=== PATIENT | female | born 1935 | race African-American/Black ===

== ENCOUNTER 2019-04-23 10:59 | Inpatient (IN) | payer OTHER ==
--- NOTE | 2019-04-23 11:30 | PDOC ---
History of Present Illness - General Chief Complaint: Edema Stated Complaint: SWELLING/PCP SENT Time Seen by Provider: 04/23/19 11:30 - History of Present Illness Initial Comments: 04/23/19 11:30 Ms. Bishop is an 83 yo female w/ pmh of HTN, HLD, DM, Glaucoma, GERD, previous DVT (on eliquis) who presents for evaluation on advice of PCP. Patient was evaluated in office 2 days ago and thought to be retaining fluid. Was directed to come to ER at that time for evaluation however was unable to make it until today. Patient reports she has been feeling weak for the last week. Denies other symptoms at this time. The patient denies chest pain, shortness of breath, headache and dizziness. Denies fever, chills, nausea, vomit, diarrhea and constipation. Denies dysuria, frequency, urgency and hematuria. Past History - Past Medical History Allergies/Adverse Reactions: Allergies Allergy/AdvReac Type Severity Reaction Status Date / Time No Known Allergies Allergy Verified 04/23/19 11:03 COPD: No Diabetes: Yes HTN: Yes Hypercholesterolemia: Yes - Immunization History Immunization Up to Date: No - Psycho Social/Smoking Cessation Hx Smoking History: Never smoked Have you smoked in the past 12 months: No Information on smoking cessation initiated: No Hx Alcohol Use: No Drug/Substance Use Hx: No Review of Systems - Review of Systems Comments:: 04/23/19 11:30 GENERAL/CONSTITUTIONAL: +Generalized weakness for the past week. No fever or chills. HEAD, EYES, EARS, NOSE AND THROAT: No change in vision. No ear pain or discharge. No sore throat. CARDIOVASCULAR: No chest pain or shortness of breath RESPIRATORY: No cough, wheezing, or hemoptysis. GASTROINTESTINAL: No nausea, vomiting, diarrhea or constipation. GENITOURINARY: No dysuria, frequency, or change in urination. MUSCULOSKELETAL: No joint or muscle swelling or pain. No neck or back pain. SKIN: No rash NEUROLOGIC: No headache, vertigo, loss of consciousness, or change in strength/ sensation. ENDOCRINE: No increased thirst. No abnormal weight change HEMATOLOGIC/LYMPHATIC: No anemia, easy bleeding, or history of blood clots. ALLERGIC/IMMUNOLOGIC: No hives or skin allergy. *Physical Exam - Vital Signs Last Vital Signs Temp Pulse Resp BP Pulse Ox 98.4 F 76 16 124/54 L 99 01/16/20 11:05 04/23/19 11:05 04/23/19 11:05 04/23/19 11:05 04/23/19 11:05 - Physical Exam 04/23/19 11:31 GENERAL: Awake, alert, and fully oriented, in no acute distress HEAD: +Patient face swollen under eyes KARLA. No signs of trauma, normocephalic, atraumatic EYES: PERRLA, EOMI, sclera anicteric, conjunctiva clear ENT: Auricles normal inspection, hearing grossly normal, nares patent, oropharynx clear without exudates. Moist mucosa NECK: Normal ROM, supple, no lymphadenopathy, JVD, or masses LUNGS: No distress, speaks full sentences, clear to auscultation bilaterally HEART: Regular rate and rhythm, normal S1 and S2, no murmurs, rubs or gallops, peripheral pulses normal and equal bilaterally. ABDOMEN: Soft, nontender, normoactive bowel sounds. No guarding, no rebound. No masses EXTREMITIES: +Signficant pedal edema KARLA up to knees. Normal inspection, Normal range of motion. No clubbing or cyanosis. NEUROLOGICAL: Cranial nerves II through XII grossly intact. Normal speech, no focal sensorimotor deficits SKIN: Warm, Dry, normal turgor, no rashes or lesions noted. ED Treatment Course - LABORATORY CBC & Chemistry Diagram: 04/23/19 12:31 04/23/19 12:31 Medical Decision Making - Medical Decision Making 04/23/19 14:59 Patient is an 83 yo female w/ pmh as described who presents for evaluation of weakness with weight gain and concern for fluid overload per PCP. Patient evaluated and found to have significant pedal edema with worsening mobility. 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 Patient evaluated for fluid overload and infections process with no clear results as below regarding weakness. Discussed with PCP and will admit for observation for failure to thrive. Discharge - Discharge Information Problems reviewed: Yes Clinical Impression/Diagnosis: Failure to thrive Qualifiers: Failure to thrive age range: in adult Qualified Code(s): R62.7 - Adult failure to thrive Condition: Stable - Admission Yes - Follow up/Referral - Patient Discharge Instructions - Post Discharge Activity
[2019-04-23 12:55] LABS: BASO % 0.5 % (0-2.0); EOS % 2.8 % (0-4.5); HEMATOCRIT 30.1 % (32.4-45.2); HEMOGLOBIN 9.8 GM/dL (10.7-15.3); LYMPH % 29.4 % (8-40); MCH 31.7 pg (25.7-33.7); MCHC 32.5 g/dl (32.0-36.0); MEAN CELL VOLUME 97.7 fl (80-96); MEAN PLT VOLUME 9.6 fl (7.5-11.1); MONO % 10.9 % (3.8-10.2); NEUT % 56.4 % (42.8-82.8); PLATELET COUNT 124 K/MM3 (134-434); RBC 3.08 M/mm3 (3.60-5.2); RDW 15.9 % (11.6-15.6); WHITE BLOOD COUNT 5.4 K/mm3 (4.0-10.0)
[2019-04-23 13:25] LABS: ALBUMIN 3.7 g/dl (3.4-5.0); BILIRUBIN,TOTAL 0.4 mg/dL (0.2-1); BLOOD UREA NITROGEN 21.9 mg/dL (7-18); CALCIUM 9.2 mg/dL (8.5-10.1); CREATININE 1.2 mg/dL (0.55-1.3); N-TERMINAL BNP 503.6 pg/ml (5-450); POTASSIUM 4.7 mmol/L (3.5-5.1); TOT PROT 6.8 g/dl (6.4-8.2)
--- NOTE | 2019-04-23 14:10 | PDOC ---
Documentation entered by Lexy Narayanan SCRIBE, acting as scribe for Mayra Graham MD. Mayra Graham MD: This documentation has been prepared by the Lady gomez Brenda, SCRIBE, under my direction and personally reviewed by me in its entirety. I confirm that the documentation accurately reflects all work, treatment, procedures, and medical decision making performed by me. Attending Attestation - Resident Resident Name: Pawan Mortensen - ED Attending Attestation I have performed the following: I have examined & evaluated the patient, The case was reviewed & discussed with the resident, I agree w/resident's findings & plan, Exceptions are as noted - HPI HPI: 04/23/19 11:42 The patient is an 83 year old female with a significant PMH of DM, HTN, HLD, glaucoma, DVT (on eliquis) who presents with c/o weakness. She has had recent leg swelling, worsening over the past few days. Denies any SOB, cp. Uncertain if she had any recent changes in medication, diet. Allergies: NKA PCP: Graham Subramanian - Physicial Exam PE: 04/23/19 11:42 GENERAL: Awake, alert, and fully oriented, in no acute distress HEAD: No signs of trauma EYES: PERRLA, EOMI, sclera anicteric, conjunctiva clear ENT: Auricles normal inspection, hearing grossly normal, nares patent, oropharynx clear without exudates. Moist mucosa NECK: Normal ROM, supple, no lymphadenopathy, JVD, or masses LUNGS: Breath sounds equal, clear to auscultation bilaterally. +Crackles at the bases B/L HEART: Regular rate and rhythm, normal S1 and S2, no murmurs, rubs or gallops ABDOMEN: Soft, nontender, normoactive bowel sounds. No guarding, no rebound. No masses EXTREMITIES: Normal range of motion. No clubbing or cyanosis. 2+ pitting edema to BLE to level of knees. NEUROLOGICAL: Cranial nerves II through XII grossly intact. Normal speech, normal gait SKIN: Warm, Dry, normal turgor, no rashes or lesions noted. - Medical Decision Making Pt with signs of CHF, unclear reason for exacerbation. Will discuss with PMD.
--- NOTE | 2019-04-23 16:33 | HP ---
Admitting History and Physical - Admission Chief Complaint: c/o puffy face lost wt 19 lbs in 2 wks ? failure to thrive wostining legs stasis History Source: Patient Limitations to Obtaining History: Physical Impairment - Past Medical History Cardiovascular: Yes: CHF, HTN Renal/: Yes: Renal Inusuff Heme/Onc: Yes: Anemia Infectious Disease: Yes: Other (legs wds) Musculoskeletal: Yes: Chronic low back pain Endocrine: Yes: Diabetes Mellitus Dermatology: Yes: Other (stasis wds legs) - Past Surgical History Additional Past Surgical History: maricruz leg stents - Smoking History Smoking history: Never smoked Have you smoked in the past 12 months: No - Alcohol/Substance Use Hx Alcohol Use: No History of Substance Use: reports: None - Social History Usual Living Arrangement: Yes: Alone History of Recent Travel: No Home Medications - Allergies Allergies/Adverse Reactions: Allergies Allergy/AdvReac Type Severity Reaction Status Date / Time No Known Allergies Allergy Verified 04/23/19 11:03 Family Medical History Family History: Unremarkable Review of Systems - Review of Systems Constitutional: reports: Loss of Appetite HENT: reports: Other (face swallen) Cardiovascular: reports: No Symptoms, Shortness of Breath Gastrointestinal: reports: No Symptoms Genitourinary: reports: No Symptoms Breasts: reports: No Symptoms Reported Musculoskeletal: reports: Back Pain Integumentary: reports: Wound Neurological: reports: No Symptoms Endocrine: reports: No Symptoms Hematology/Lymphatic: reports: No Symptoms Psychiatric: reports: No Symptoms Physical Examination Vital Signs: Vital Signs Temperature 98.4 F 04/23/19 11:05 Pulse Rate 76 04/23/19 11:05 Respiratory Rate 16 04/23/19 11:05 Blood Pressure 124/54 L 04/23/19 11:05 O2 Sat by Pulse Oximetry (%) 99 04/23/19 11:05 Constitutional: Yes: No Distress Eyes: Yes: Other (periorbital edema puffy face) Neck: Yes: WNL Cardiovascular: Yes: WNL Respiratory: Yes: WNL Gastrointestinal: Yes: WNL ...Rectal Exam: Yes: Deferred Renal/: Yes: WNL Breast(s): Yes: WNL Musculoskeletal: Yes: WNL Extremities: Yes: Erythema Edema: Yes Edema: LLE: 2+, RLE: 2+ Peripheral Pulses WNL: Yes Wound/Incision: Yes: Clean/Dry Neurological: Yes: WNL Psychiatric: Yes: WNL Labs: CBC, BMP 04/23/19 12:31 04/23/19 12:31 Problem List - Problems (1) Periorbital cellulitis Code(s): L03.213 - PERIORBITAL CELLULITIS (2) Diabetes 1.5, managed as type 2 Code(s): E13.9 - OTHER SPECIFIED DIABETES MELLITUS WITHOUT COMPLICATIONS (3) PVD (peripheral vascular disease) Code(s): I73.9 - PERIPHERAL VASCULAR DISEASE, UNSPECIFIED (4) HTN (hypertension) Code(s): I10 - ESSENTIAL (PRIMARY) HYPERTENSION (5) HTN (hypertension) Code(s): I10 - ESSENTIAL (PRIMARY) HYPERTENSION (6) CARIE (acute kidney injury) Code(s): N17.9 - ACUTE KIDNEY FAILURE, UNSPECIFIED (7) Glaucoma Code(s): H40.9 - UNSPECIFIED GLAUCOMA (8) Acquired lymphedema of lower extremity Code(s): I89.0 - LYMPHEDEMA, NOT ELSEWHERE CLASSIFIED (9) CHF (congestive heart failure) Code(s): I50.9 - HEART FAILURE, UNSPECIFIED Assessment/Plan cont all meds as home nutrinal eval
[2019-04-23] MEDS: APIXABAN 5 MG TABLET PO SCH (23:23)
[2019-04-23] MEDS: GABAPENTIN 100 MG CAPSULE PO SCH (23:23)
[2019-04-23] MEDS: ATORVASTATIN CA 80 MG TABLET (FP) PO SCH (23:23)
[2019-04-23] MEDS: CARVEDILOL 6.25 MG TABLET (FP) PO SCH (23:24)
[2019-04-24 01:16] LABS: EPI CELLS 0.8 /HPF (0-5/HPF); HYALINE CASTS 1 /lpf (0-8); URINE APPEARANCE CLOUDY; URINE BACTERIA 3.4 /hpf (NEGATIVE); URINE BILIRUBIN NEGATIVE (NEGATIVE); URINE COLOR YELLOW; URINE GLUCOSE (UA) NEGATIVE (NEGATIVE); URINE KETONE NEGATIVE (NEGATIVE); URINE LEUK ESTERASE NEGATIVE (NEGATIVE); URINE NITRITE NEGATIVE (NEGATIVE); URINE PROTEIN NEGATIVE (NEGATIVE); URINE RBC 11 /hpf (0-4); URINE WBC 1 /hpf (0-5)
[2019-04-24] MEDS: PIOGLITAZONE HCL 30 MG TABLET PO SCH (06:39)
[2019-04-24] MEDS ORDERED: LISINOPRIL 20 MG TABLET (FP) PO SCH (10:00)
[2019-04-24] MEDS: GABAPENTIN 100 MG CAPSULE PO SCH ×2 (10:07→21:28)
[2019-04-24] MEDS: predniSONE 20 MG TABLET (UD) PO SCH (10:08)
[2019-04-24] MEDS: amLODIPine BESYLATE 10 MG TABLET (FP) PO SCH (10:08)
[2019-04-24] MEDS: ASPIRIN COATED 81 MG TABLET.EC PO SCH (10:08)
[2019-04-24] MEDS: APIXABAN 5 MG TABLET PO SCH ×2 (10:09→21:28)
[2019-04-24] MEDS: CARVEDILOL 6.25 MG TABLET (FP) PO SCH ×2 (10:09→21:28)
--- NOTE | 2019-04-24 10:30 | CONSULT ---
- Consultation REQUESTING PROVIDER: CONSULT REQUEST: We have been asked to surgically evaluate this patient for b/l LE wounds. PCP:Graham Subramanian HISTORY OF PRESENT ILLNESS: History of Present Illness - General Chief Complaint: Edema Stated Complaint: SWELLING/PCP SENT Time Seen by Provider: 04/23/19 11:30 - History of Present Illness Initial Comments: Ms. Bishop is an 83 yo female w/ pmh of HTN, HLD, DM, Glaucoma, GERD, previous DVT (on eliquis) who was sent to the ER via her PCP for fluid retention. Patient reports she has had chronic venous stasis ulcers which have been managed via VNS /wound care at home. The patient denies chest pain, shortness of breath, headache and dizziness. Denies fever, chills, nausea, vomit, diarrhea and constipation. Denies dysuria, frequency, urgency and hematuria. Past History - Past Medical History Allergies/Adverse Reactions: Allergies Allergy/AdvReac Type Severity Reaction Status Date / Time No Known Allergies Allergy Verified 04/23/19 11:03 COPD: No Diabetes: Yes HTN: Yes Hypercholesterolemia: Yes - Immunization History Immunization Up to Date: No - Psycho Social/Smoking Cessation Hx Smoking History: Never smoked Have you smoked in the past 12 months: No Information on smoking cessation initiated: No Hx Alcohol Use: No Drug/Substance Use Hx: No Review of Systems - Review of Systems Comments:: GENERAL/CONSTITUTIONAL: +Generalized weakness for the past week. No fever or chills. HEAD, EYES, EARS, NOSE AND THROAT: No change in vision. No ear pain or discharge. No sore throat. CARDIOVASCULAR: No chest pain or shortness of breath RESPIRATORY: No cough, wheezing, or hemoptysis. GASTROINTESTINAL: No nausea, vomiting, diarrhea or constipation. GENITOURINARY: No dysuria, frequency, or change in urination. MUSCULOSKELETAL: No joint or muscle swelling or pain. No neck or back pain. SKIN: Chronic LE skin changes, NEUROLOGIC: No headache, vertigo, loss of consciousness, or change in strength/ sensation. ENDOCRINE: No increased thirst. No abnormal weight change HEMATOLOGIC/LYMPHATIC: or history of blood clots. ALLERGIC/IMMUNOLOGIC: No hives or skin allergy. *Physical Exam - Vital Signs Last Vital Signs Temp Pulse Resp BP Pulse Ox 98.4 F 76 16 124/54 L 99 04/23/19 11:05 04/23/19 11:05 04/23/19 11:05 04/23/19 11:05 04/23/19 11:05 GENERAL: Awake, alert, and fully oriented, in no acute distress HEAD: No signs of trauma, normocephalic, atraumatic EYES: sclera anicteric, conjunctiva clear LUNGS: unlabored resp on RA, speaks full sentences EXTREMITIES: diffuse edema throughout b/l LE with chronic skin changes seen throughout. Small superficial wound <[id number] over lateral aspect of distal 1/3 right lower leg. no foul odor or active d/c. +signal at b/l DP and PT. feet and toes warm and well perfused. No clubbing or cyanosis. NEUROLOGICAL: Cranial nerves II through XII grossly intact. Normal speech, no focal sensorimotor deficits SKIN: Warm, Dry, normal turgor, no rashes or lesions noted. CBC, BMP 04/23/19 12:31 04/23/19 12:31 Problem List - Problems (1) PVD (peripheral vascular disease) Assessment/Plan: 83yo with PVD and chronic venous stasis with no indication for vascular intervention at this time. -bacitracin to right LE wound daily -elevate b/l LE -Light teri wrap to b/l LE -f/u with Dr Raphael as outpatient Evaluation and plan discussed with Dr Crespo Code(s): I73.9 - PERIPHERAL VASCULAR DISEASE, UNSPECIFIED
[2019-04-24] MEDS: BACITRACIN 15 GM TUBE TOPICAL OINTMENT TP SCH (13:03)
--- NOTE | 2019-04-24 13:49 | EKG ---
Test Reason : Blood Pressure : / mmHG Vent. Rate : 072 BPM Atrial Rate : 072 BPM P-R Int : 194 ms QRS Dur : 136 ms QT Int : 406 ms P-R-T Axes : 058 -09 014 degrees QTc Int : 444 ms NORMAL SINUS RHYTHM RIGHT BUNDLE BRANCH BLOCK ABNORMAL ECG NO PREVIOUS ECGS AVAILABLE Confirmed by CHINTAN MCLAIN MD ([id number]) on 04/24/2019 1:48:52 PM Referred By: Confirmed By:CHINTAN MCLAIN MD
--- NOTE | 2019-04-24 14:04 | PN ---
Progress Note, Physician Chief Complaint: comfotablr eating po better each day - Current Medication List Current Medications: Active Medications Amlodipine Besylate (Norvasc -) 10 mg PO DAILY [facility] Last Admin: 04/24/19 10:08 Dose: 10 mg Apixaban (Eliquis -) 5 mg PO BID [facility] Last Admin: 04/24/19 10:09 Dose: 5 mg Aspirin (Ecotrin -) 81 mg PO DAILY [facility] Last Admin: 04/24/19 10:08 Dose: 81 mg Atorvastatin Calcium (Lipitor -) [address] [facility] Last Admin: 04/23/19 23:23 Dose: 80 mg Bacitracin (Bacitracin -) 1 applic TP DAILY [facility] Last Admin: 04/24/19 13:03 Dose: 1 applic Carvedilol (Coreg -) 6.25 mg PO BID [facility] Last Admin: 04/24/19 10:09 Dose: 6.25 mg Gabapentin (Neurontin -) 200 mg PO BID [facility] Last Admin: 04/24/19 10:07 Dose: 200 mg Montelukast Sodium (Singulair -) [address] [facility] Pioglitazone HCl (Actos -) 30 mg PO DAILY@0700 [facility] Last Admin: 04/24/19 06:39 Dose: 30 mg Prednisone (Deltasone -) 20 mg PO DAILY [facility] Last Admin: 04/24/19 10:08 Dose: 20 mg - Objective Vital Signs: Vital Signs Temperature 97.9 F 04/24/19 06:00 Pulse Rate 71 04/24/19 06:00 Respiratory Rate 18 04/24/19 06:00 Blood Pressure 130/50 L 04/24/19 06:00 O2 Sat by Pulse Oximetry (%) 99 04/23/19 11:05 Constitutional: Yes: No Distress Eyes: Yes: WNL HENT: Yes: WNL, Other (less swelling in face) Neck: Yes: WNL Cardiovascular: Yes: WNL Respiratory: Yes: WNL Gastrointestinal: Yes: WNL ...Rectal Exam: Yes: Deferred Genitourinary: Yes: WNL Breast(s): Yes: WNL Musculoskeletal: Yes: Back Pain, Muscle Weakness Extremities: Yes: WNL Edema: Yes Edema: LLE: 1+, RLE: 1+ Peripheral Pulses WNL: Yes Peripheral Pulses: Left Doralis Pedis: 1+, Right Dorsalis Pedis: 1+, Left Femoral: 1+, Right Femoral: 1+ Integumentary: Yes: WNL Neurological: Yes: WNL ...Motor Strength: LLE (weak) Psychiatric: Yes: WNL Labs: CBC, BMP 04/23/19 12:31 04/23/19 12:31 Problem List - Problems (1) Periorbital cellulitis Code(s): L03.213 - PERIORBITAL CELLULITIS (2) Diabetes 1.5, managed as type 2 Code(s): E13.9 - OTHER SPECIFIED DIABETES MELLITUS WITHOUT COMPLICATIONS (3) PVD (peripheral vascular disease) Code(s): I73.9 - PERIPHERAL VASCULAR DISEASE, UNSPECIFIED (4) HTN (hypertension) Code(s): I10 - ESSENTIAL (PRIMARY) HYPERTENSION (5) HTN (hypertension) Code(s): I10 - ESSENTIAL (PRIMARY) HYPERTENSION (6) CARIE (acute kidney injury) Code(s): N17.9 - ACUTE KIDNEY FAILURE, UNSPECIFIED (7) Glaucoma Code(s): H40.9 - UNSPECIFIED GLAUCOMA (8) Acquired lymphedema of lower extremity Code(s): I89.0 - LYMPHEDEMA, NOT ELSEWHERE CLASSIFIED (9) CHF (congestive heart failure) Code(s): I50.9 - HEART FAILURE, UNSPECIFIED Assessment/Plan [address] dietition daily wts cont tx as is ? asees for [place] rehab if fam agrees
--- NOTE | 2019-04-24 14:41 | CONSULT ---
Admitting History and Physical - Primary Care Physician PCP: Graham Subramanian - Admission History of Present Illness: Per EMR- 83 yo female w/ pmh of HTN, HLD, DM, Glaucoma, GERD, previous DVT (on eliquis) who was sent to the ER via her PCP for fluid retention. c/o puffy face lost wt 19 lbs in 2 wks ? failure to thrive Selected Entries 04/24/19 04/24/19 06:00 14:00 Temperature 97.9 F 97.5 F L Blood Pressure 130/50 L 142/59 L Laboratory Tests 04/23/19 12:31 WBC 5.4 Pt reports she lost her appetite, hads lost weight, but now is gaining weight. She ate more than 1/2 of Baked Ziti for lunch. She denies dysphagia, Odynophagia , nausea, depression. History Source: Patient Limitations to Obtaining History: No Limitations - Past Medical History Cardiovascular: Yes: CHF, HTN Renal/: Yes: Renal Inusuff Heme/Onc: Yes: Anemia Infectious Disease: Yes: Other (legs wds) Musculoskeletal: Yes: Chronic low back pain Endocrine: Yes: Diabetes Mellitus Dermatology: Yes: Other (stasis wds legs) - Past Surgical History Additional Past Surgical History: maricruz leg stents - Smoking History Smoking history: Never smoked Have you smoked in the past 12 months: No - Alcohol/Substance Use Hx Alcohol Use: No History of Substance Use: reports: None - Social History History of Recent Travel: No History - Admission Reason For Visit: FAILURE TO THRIVE - Diagnostics X-ray: Report Reviewed - General Mental Status: Alert and Oriented, Awake and Alert, Able to Follow Commands Attention: Intact Ability to Follow Directions: Excellent Head/Neck Control: WFL - Hearing Hearing: Normal Speech Evaluation - Communication Primary Language: [place] Communication: Yes: Within Normal Limits Oral Expression Ability: Yes: No Impairment - Speech Production Able to Make Needs Known: Yes: WNL Intelligibility: Yes: WNL - Speech Characteristics Voice Loudness: Normal Voice Pitch: Yes: Normal Voice Phonatory-based Quality: Yes: Normal Speech Pattern: Normal Speech Clarity: < 100% Nasal Resonance: Normal Articulation: Yes: Precise Rate of Speech: Intact - Language/Auditory Comprehension Follows: Yes: Complex Commands - Language/Verbal Expression Able to Respond to Simple Queries: Yes: WNL Able to Communicate Wants and Needs: Yes: WNL Functional Communication Status: Yes: WNL - 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 Short Term Memory: Yes: WNL - Swallow Evaluation/Bedside Assessment Current Nutritional Intake: Regular, Thin Liquids Oral Secretions: Yes: WFL Dentition: Yes: Adequate, Dental Appliance Upper, Dental Appliance Lower (loose , broke a tooth recently) Facial Symmetry at Rest: Symmetrical Facial Symmetry on Retraction: Symmetrical Sensation: Normal Against Resistance Opening: Normal Against Resistance Closing: Normal Pucker Lips: Normal Lingual Movement: Normal, Symmetric Lingual Speed of Movement: Normal Lingual Movement Strgth Against Opposition: Normal Lingual Movement Characteristics: Normal Velopharyngeal Movement: Normal Laryngeal Elevation: WFL Laryngeal Movement: Able to Palpate Rate of Intake: WFL Bolus Size: WFL Labial Seal: WFL Chewing: Impaired (mildly labored with loose lower dentures. Pt does not want diet downgrade) Oral Prep Time: WFL A-P Transit: WFL Pocketing: None Timing of Swallow: WFL Coughing/Throat Clear: No Change in Voice: No Recommendations - Speech Evaluation, Impression/Plan Impression: Pt reports improving appetite. She denies dysphagia, odynophagia, nausea, depression. Mildly labored mastication with loose lower dentures. Pt does not want diet downgrade - Disposition Discharge to: To be Determined (Dental consult upon d/c) - Dysphagia Impressions/Plan Swallowing Skills: [facility] Dysphagia Impressions: No Impairment *Silent aspiration: cannot be R/O at bedside Dysphagia Treatment Plan: Labial Exercises - Recommendations Diet Consistency: Regular Medication Administration: Whole with water Liquids: Thin Liquids
[2019-04-24 16:12] LABS: CALCIUM 9.2 mg/dL (8.5-10.1); CREATININE 1.1 mg/dL (0.55-1.3); POTASSIUM 5.1 mmol/L (3.5-5.1)
[2019-04-24] MEDS: ATORVASTATIN CA 80 MG TABLET (FP) PO SCH (21:28)
[2019-04-24] MEDS: MONTELUKAST NA 10 MG TABLET PO SCH (21:28)
[2019-04-25] MEDS: PIOGLITAZONE HCL 30 MG TABLET PO SCH (06:54)
[2019-04-25] MEDS: amLODIPine BESYLATE 10 MG TABLET (FP) PO SCH (09:43)
[2019-04-25] MEDS: predniSONE 20 MG TABLET (UD) PO SCH (09:43)
[2019-04-25] MEDS: GABAPENTIN 100 MG CAPSULE PO SCH ×2 (09:43→22:33)
[2019-04-25] MEDS: ASPIRIN COATED 81 MG TABLET.EC PO SCH (09:44)
[2019-04-25] MEDS: CARVEDILOL 6.25 MG TABLET (FP) PO SCH ×2 (09:44→22:34)
[2019-04-25] MEDS: APIXABAN 5 MG TABLET PO SCH ×2 (09:44→22:34)
[2019-04-25] MEDS: BACITRACIN 15 GM TUBE TOPICAL OINTMENT TP SCH (10:35)
--- NOTE | 2019-04-25 11:51 | PN ---
Progress Note, Physician - Current Medication List Current Medications: Active Medications Amlodipine Besylate (Norvasc -) 10 mg PO DAILY [facility] Last Admin: 04/25/19 09:43 Dose: 10 mg Apixaban (Eliquis -) 5 mg PO BID [facility] Last Admin: 04/25/19 09:44 Dose: 5 mg Aspirin (Ecotrin -) 81 mg PO DAILY [facility] Last Admin: 04/25/19 09:44 Dose: 81 mg Atorvastatin Calcium (Lipitor -) 80 mg PO HS [facility] Last Admin: 04/24/19 21:28 Dose: 80 mg Bacitracin (Bacitracin -) 1 applic TP DAILY [facility] Last Admin: 04/25/19 10:35 Dose: 1 applic Carvedilol (Coreg -) 6.25 mg PO BID [facility] Last Admin: 04/25/19 09:44 Dose: 6.25 mg Gabapentin (Neurontin -) 200 mg PO BID [facility] Last Admin: 04/25/19 09:43 Dose: 200 mg Montelukast Sodium (Singulair -) 10 mg PO [facility] Last Admin: 04/24/19 21:28 Dose: 10 mg Pioglitazone HCl (Actos -) 30 mg PO DAILY@0700 [facility] Last Admin: 04/25/19 06:54 Dose: 30 mg Prednisone (Deltasone -) 20 mg PO DAILY [facility] Last Admin: 04/25/19 09:43 Dose: 20 mg - Objective Vital Signs: Vital Signs Temperature 99 F 04/25/19 09:51 Pulse Rate 88 04/25/19 09:51 Respiratory Rate 20 04/25/19 09:51 Blood Pressure 127/52 L 04/25/19 09:51 O2 Sat by Pulse Oximetry (%) 96 04/24/19 21:00 Constitutional: Yes: No Distress Eyes: Yes: WNL HENT: Yes: WNL Neck: Yes: WNL Cardiovascular: Yes: WNL Respiratory: Yes: WNL Gastrointestinal: Yes: WNL ...Rectal Exam: Yes: Deferred Genitourinary: Yes: WNL Breast(s): Yes: WNL Musculoskeletal: Yes: Back Pain Extremities: Yes: Delayed Capillary Refill Edema: Yes Edema: LLE: 1+, RLE: 1+ Peripheral Pulses WNL: Yes Peripheral Pulses: Left Doralis Pedis: 1+, Right Dorsalis Pedis: 1+, Left Femoral: 1+, Right Femoral: 1+ Integumentary: Yes: WNL Wound/Incision: Yes: Clean/Dry Neurological: Yes: Alert ...Motor Strength: WNL Psychiatric: Yes: WNL, Other (lt leg no/change ? weak) Labs: CBC, BMP 04/23/19 12:31 04/24/19 13:59 Problem List - Problems (1) Periorbital cellulitis Code(s): L03.213 - PERIORBITAL CELLULITIS (2) Diabetes 1.5, managed as type 2 Code(s): E13.9 - OTHER SPECIFIED DIABETES MELLITUS WITHOUT COMPLICATIONS (3) PVD (peripheral vascular disease) Code(s): I73.9 - PERIPHERAL VASCULAR DISEASE, UNSPECIFIED (4) HTN (hypertension) Code(s): I10 - ESSENTIAL (PRIMARY) HYPERTENSION (5) HTN (hypertension) Code(s): I10 - ESSENTIAL (PRIMARY) HYPERTENSION (6) CARIE (acute kidney injury) Code(s): N17.9 - ACUTE KIDNEY FAILURE, UNSPECIFIED (7) Glaucoma Code(s): H40.9 - UNSPECIFIED GLAUCOMA (8) Acquired lymphedema of lower extremity Code(s): I89.0 - LYMPHEDEMA, NOT ELSEWHERE CLASSIFIED (9) CHF (congestive heart failure) Code(s): I50.9 - HEART FAILURE, UNSPECIFIED Assessment/Plan cont po feeding daily wts dietition f/u made pt admitt no observation status ?nhdshort rehab spoke to family no bloods for now hard to get vein i did it w lots luck
[2019-04-25] MEDS: MONTELUKAST NA 10 MG TABLET PO SCH (22:34)
[2019-04-25] MEDS: ATORVASTATIN CA 80 MG TABLET (FP) PO SCH (22:34)
[2019-04-26] MEDS: INSULIN SLIDING SCALE (NOVOLOG) 1 VIAL SQ SCH ×3 (00:14→17:45)
[2019-04-26] MEDS ORDERED: PT OWN MED DRAWER 7, Y5N ONE (07:07)
[2019-04-26] MEDS: PIOGLITAZONE HCL 30 MG TABLET PO SCH (07:11)
[2019-04-26] MEDS: amLODIPine BESYLATE 10 MG TABLET (FP) PO SCH (09:36)
[2019-04-26] MEDS: CARVEDILOL 6.25 MG TABLET (FP) PO SCH ×2 (09:36→23:21)
[2019-04-26] MEDS: predniSONE 20 MG TABLET (UD) PO SCH (09:36)
[2019-04-26] MEDS: ASPIRIN COATED 81 MG TABLET.EC PO SCH (09:36)
[2019-04-26] MEDS: GABAPENTIN 100 MG CAPSULE PO SCH ×2 (09:36→23:20)
[2019-04-26] MEDS: APIXABAN 5 MG TABLET PO SCH ×2 (09:36→23:21)
[2019-04-26] MEDS: BACITRACIN 15 GM TUBE TOPICAL OINTMENT TP SCH (09:37)
[2019-04-26] MEDS: MONTELUKAST NA 10 MG TABLET PO SCH (23:20)
[2019-04-26] MEDS: ATORVASTATIN CA 80 MG TABLET (FP) PO SCH (23:20)
[2019-04-27] MEDS ORDERED: PT OWN MED DRAWER 7, Y5N ONE (05:53)
[2019-04-27] MEDS: INSULIN SLIDING SCALE (NOVOLOG) 1 VIAL SQ SCH ×2 (06:57→16:48)
[2019-04-27] MEDS: PIOGLITAZONE HCL 30 MG TABLET PO SCH (06:57)
[2019-04-27] MEDS: APIXABAN 5 MG TABLET PO SCH ×2 (10:12→21:07)
[2019-04-27] MEDS: amLODIPine BESYLATE 10 MG TABLET (FP) PO SCH (10:12)
[2019-04-27] MEDS: ASPIRIN COATED 81 MG TABLET.EC PO SCH (10:13)
--- NOTE | 2019-04-27 10:13 | PN ---
Progress Note, Physician Chief Complaint: tolerating diety better feeding vss ? bp ok without lisinopril - Current Medication List Current Medications: Active Medications Amlodipine Besylate (Norvasc -) 10 mg PO DAILY [facility] Last Admin: 04/26/19 09:36 Dose: 10 mg Apixaban (Eliquis -) 5 mg PO BID [facility] Last Admin: 04/26/19 23:21 Dose: 5 mg Aspirin (Ecotrin -) 81 mg PO DAILY [facility] Last Admin: 04/26/19 09:36 Dose: 81 mg Atorvastatin Calcium (Lipitor -) 80 mg PO [facility] Last Admin: 04/26/19 23:20 Dose: 80 mg Bacitracin (Bacitracin -) 1 applic TP DAILY [facility] Last Admin: 04/26/19 09:37 Dose: 1 applic Carvedilol (Coreg -) 6.25 mg PO BID [facility] Last Admin: 04/26/19 23:21 Dose: 6.25 mg Gabapentin (Neurontin -) 200 mg PO BID [facility] Last Admin: 04/26/19 23:20 Dose: 200 mg Insulin Aspart (Novolog Vial Sliding Scale -) [facility]; Protocol Last Admin: 04/27/19 06:57 Dose: Not Given Montelukast Sodium (Singulair -) 10 mg PO [facility] Last Admin: 04/26/19 23:20 Dose: 10 mg Pioglitazone HCl (Actos -) 30 mg PO DAILY@0700 [facility] Last Admin: 04/27/19 06:57 Dose: 30 mg Prednisone (Deltasone -) 20 mg PO DAILY [facility] Last Admin: 04/26/19 09:36 Dose: 20 mg - Objective Vital Signs: Vital Signs Temperature 97.9 F 04/27/19 09:48 Pulse Rate 76 04/27/19 09:48 Respiratory Rate 18 04/27/19 09:48 Blood Pressure 127/58 L 04/27/19 09:48 O2 Sat by Pulse Oximetry (%) 99 04/26/19 21:00 Constitutional: Yes: No Distress Eyes: Yes: WNL HENT: Yes: WNL Neck: Yes: WNL Cardiovascular: Yes: WNL Respiratory: Yes: WNL Gastrointestinal: Yes: WNL ...Rectal Exam: Yes: Deferred Genitourinary: Yes: WNL Breast(s): Yes: WNL Musculoskeletal: Yes: WNL, Back Pain Extremities: Yes: Other (rt calf healing) Edema: Yes Edema: LLE: 1+, RLE: 1+ Peripheral Pulses WNL: Yes Peripheral Pulses: Left Femoral: 1+, Right Femoral: 1+ Integumentary: Yes: WNL Wound/Incision: Yes: Clean/Dry Neurological: Yes: WNL ...Motor Strength: WNL, LLE (weak) Psychiatric: Yes: WNL Labs: CBC, BMP 04/23/19 12:31 04/24/19 13:59 Problem List - Problems (1) Periorbital cellulitis Code(s): L03.213 - PERIORBITAL CELLULITIS (2) Diabetes 1.5, managed as type 2 Code(s): E13.9 - OTHER SPECIFIED DIABETES MELLITUS WITHOUT COMPLICATIONS (3) PVD (peripheral vascular disease) Code(s): I73.9 - PERIPHERAL VASCULAR DISEASE, UNSPECIFIED (4) HTN (hypertension) Code(s): I10 - ESSENTIAL (PRIMARY) HYPERTENSION (5) HTN (hypertension) Code(s): I10 - ESSENTIAL (PRIMARY) HYPERTENSION (6) CARIE (acute kidney injury) Code(s): N17.9 - ACUTE KIDNEY FAILURE, UNSPECIFIED (7) Glaucoma Code(s): H40.9 - UNSPECIFIED GLAUCOMA (8) Acquired lymphedema of lower extremity Code(s): I89.0 - LYMPHEDEMA, NOT ELSEWHERE CLASSIFIED (9) CHF (congestive heart failure) Code(s): I50.9 - HEART FAILURE, UNSPECIFIED Assessment/Plan chk neena ct tommorow cont moniter bl prees no lisinopril? podiatry to see pt p/t to see pt feosol po vasc appreteated wd care out pt nh short term rehab cont a ll tx as is
[2019-04-27] MEDS: GABAPENTIN 100 MG CAPSULE PO SCH ×2 (10:14→21:06)
[2019-04-27] MEDS: CARVEDILOL 6.25 MG TABLET (FP) PO SCH ×2 (10:14→21:07)
[2019-04-27] MEDS: predniSONE 20 MG TABLET (UD) PO SCH (10:14)
[2019-04-27] MEDS: BACITRACIN 15 GM TUBE TOPICAL OINTMENT TP SCH (10:14)
[2019-04-27] MEDS: FERROUS SO4 325 MG TABLET (FP) PO SCH ×2 (13:24→18:54)
--- NOTE | 2019-04-27 14:23 | PN ---
Progress Note, SASH REPAIRER - Note Progress Note: Selected Entries 04/24/19 04/24/19 04/25/19 15:00 17:25 06:00 Breakfast 75% Lunch 75% Supper 75% Temperature 99.5 F 04/25/19 04/25/19 04/25/19 09:51 14:00 18:16 Breakfast 75% Lunch 75% Supper 50% Temperature 99 F 97.7 F 98.0 F 04/25/19 04/26/19 04/26/19 22:00 06:00 10:00 Breakfast Lunch Supper 50% Temperature 98.6 F 97.7 F 97.7 F 04/26/19 04/26/19 04/26/19 14:00 18:00 22:00 Breakfast 100% 100% Lunch 75% 75% Supper Temperature 97.5 F L 98.2 F 98.2 F 04/27/19 04/27/19 06:00 09:48 Breakfast Lunch Supper Temperature 97.8 F 97.9 F Tolerating diet. Appetite has improved. c/o stomache ache. Nursing informed
--- NOTE | 2019-04-27 14:35 | CONSULT ---
Consult Consult Specialty:: Podiatry Reason for Consultation:: Painful elongated thickened toe nails withsubungual debris - Past Medical History Cardio/Vascular: Yes: CHF, HTN Renal/: Yes: Renal Inusuff Infectious Disease: Yes: Other (legs wds) Musculoskeletal: Yes: Chronic low back pain Endocrine: Yes: Diabetes Mellitus Dermatology: Yes: Other (stasis wds legs) - Alcohol/Substance Use Hx Alcohol Use: No History of Substance Use: reports: None - Smoking History Smoking history: Never smoked Have you smoked in the past 12 months: No - Social History History of Recent Travel: No Home Medications - Allergies Allergies/Adverse Reactions: Allergies Allergy/AdvReac Type Severity Reaction Status Date / Time mushroom Allergy Verified 04/27/19 17:41 Physical Exam Vital Signs: Vital Signs Temperature 97.9 F 04/27/19 09:48 Pulse Rate 76 04/27/19 09:48 Respiratory Rate 18 04/27/19 09:48 Blood Pressure 127/58 L 04/27/19 09:48 O2 Sat by Pulse Oximetry (%) 100 04/27/19 10:00 Extremities: Yes: Other (+tender dystrophic mycotic nails with subungual debris , +inflammed nail beds, + xerosis b/l feet,) Labs: CBC, BMP 04/23/19 12:31 04/24/19 13:59 Assessment/Plan onychomycosis pain xerosis Ammonium lactate bid to feet and legs. Will debride nails tomorrow. will follow.
[2019-04-27] MEDS ORDERED: ACETAMINOPHEN 325 MG TABLET (FP) PO PRN (16:04)
[2019-04-27] MEDS: ATORVASTATIN CA 80 MG TABLET (FP) PO SCH (21:07)
[2019-04-27] MEDS: MONTELUKAST NA 10 MG TABLET PO SCH (21:07)
[2019-04-28] MEDS: PIOGLITAZONE HCL 30 MG TABLET PO SCH (06:23)
[2019-04-28] MEDS: INSULIN SLIDING SCALE (NOVOLOG) 1 VIAL SQ SCH ×2 (06:23→17:35)
[2019-04-28] MEDS: predniSONE 20 MG TABLET (UD) PO SCH (09:46)
[2019-04-28] MEDS: FERROUS SO4 325 MG TABLET (FP) PO SCH ×3 (09:46→17:33)
[2019-04-28] MEDS: APIXABAN 5 MG TABLET PO SCH ×2 (09:46→21:43)
[2019-04-28] MEDS: amLODIPine BESYLATE 10 MG TABLET (FP) PO SCH (09:46)
[2019-04-28] MEDS: BACITRACIN 15 GM TUBE TOPICAL OINTMENT TP SCH (09:46)
[2019-04-28] MEDS: CARVEDILOL 6.25 MG TABLET (FP) PO SCH ×2 (09:46→21:43)
[2019-04-28] MEDS: GABAPENTIN 100 MG CAPSULE PO SCH ×2 (09:47→21:44)
[2019-04-28] MEDS: ASPIRIN COATED 81 MG TABLET.EC PO SCH (09:47)
--- NOTE | 2019-04-28 10:47 | PN ---
Progress Note, Physician Chief Complaint: abd ache? no pain good bm abd nontendere vss bp ok despite stoppage of teri face slight decreae swelling neena count today to calculated - Current Medication List Current Medications: Active Medications Acetaminophen (Tylenol -) 650 mg PO Q4H PRN PRN Reason: PAIN 3- 10 Amlodipine Besylate (Norvasc -) 10 mg PO DAILY [facility] Last Admin: 04/28/19 09:46 Dose: 10 mg Apixaban (Eliquis -) 5 mg PO BID [facility] Last Admin: 04/28/19 09:46 Dose: 5 mg Aspirin (Ecotrin -) 81 mg PO DAILY [facility] Last Admin: 04/28/19 09:47 Dose: 81 mg Atorvastatin Calcium (Lipitor -) 80 mg PO [facility] Last Admin: 04/27/19 21:07 Dose: 80 mg Bacitracin (Bacitracin -) 1 applic TP DAILY [facility] Last Admin: 04/28/19 09:46 Dose: 1 applic Carvedilol (Coreg -) 6.25 mg PO BID [facility] Last Admin: 04/28/19 09:46 Dose: 6.25 mg Ferrous Sulfate (Feosol -) 325 mg PO TIDCM [facility] Last Admin: 04/28/19 09:46 Dose: 325 mg Gabapentin (Neurontin -) 200 mg PO BID [facility] Last Admin: 04/28/19 09:47 Dose: 200 mg Insulin Aspart ([facility] -[facility] Protocol Last Admin: 04/28/19 06:23 Dose: Not Given Montelukast Sodium (Singulair -) 10 mg PO [facility] Last Admin: 04/27/19 21:07 Dose: 10 mg Pioglitazone HCl (Actos -) 30 mg PO DAILY@0700 [facility] Last Admin: 04/28/19 06:23 Dose: 30 mg Prednisone (Deltasone -) 20 mg PO DAILY [facility] Last Admin: 04/28/19 09:46 Dose: 20 mg - Objective Vital Signs: Vital Signs Temperature 98.2 F 04/28/19 06:00 Pulse Rate 75 04/28/19 06:00 Respiratory Rate 20 04/28/19 06:00 Blood Pressure 142/59 L 04/28/19 06:00 O2 Sat by Pulse Oximetry (%) 99 04/27/19 21:00 Constitutional: Yes: No Distress Eyes: Yes: WNL HENT: Yes: WNL Neck: Yes: WNL Cardiovascular: Yes: WNL Respiratory: Yes: WNL Gastrointestinal: Yes: WNL ...Rectal Exam: Yes: Deferred Genitourinary: Yes: WNL Breast(s): Yes: WNL Musculoskeletal: Yes: WNL Extremities: Yes: WNL Edema: Yes Edema: LLE: 1+, RLE: 1+ Peripheral Pulses WNL: Yes Peripheral Pulses: Left Radial: 1+, Right Radial: 1+, Left Doralis Pedis: 1+, Right Dorsalis Pedis: 1+, Left Femoral: 1+ Integumentary: Yes: WNL Neurological: Yes: WNL ...Motor Strength: WNL Psychiatric: Yes: WNL Labs: CBC, BMP 04/23/19 12:31 04/24/19 13:59 Problem List - Problems (1) Periorbital cellulitis Code(s): L03.213 - PERIORBITAL CELLULITIS (2) Diabetes 1.5, managed as type 2 Code(s): E13.9 - OTHER SPECIFIED DIABETES MELLITUS WITHOUT COMPLICATIONS (3) PVD (peripheral vascular disease) Code(s): I73.9 - PERIPHERAL VASCULAR DISEASE, UNSPECIFIED (4) HTN (hypertension) Code(s): I10 - ESSENTIAL (PRIMARY) HYPERTENSION (5) HTN (hypertension) Code(s): I10 - ESSENTIAL (PRIMARY) HYPERTENSION (6) CARIE (acute kidney injury) Code(s): N17.9 - ACUTE KIDNEY FAILURE, UNSPECIFIED (7) Glaucoma Code(s): H40.9 - UNSPECIFIED GLAUCOMA (8) Acquired lymphedema of lower extremity Code(s): I89.0 - LYMPHEDEMA, NOT ELSEWHERE CLASSIFIED (9) CHF (congestive heart failure) Code(s): I50.9 - HEART FAILURE, UNSPECIFIED Assessment/Plan chk neena count stop steroids pt going home in ? am cont as is labs to be done
--- NOTE | 2019-04-28 11:01 | PN ---
Progress Note, BREAD BAKER - Note Progress Note: Selected Entries 04/27/19 04/27/19 04/27/19 06:00 09:48 14:00 Breakfast 75% Supper Temperature 97.8 F 97.9 F 98.5 F 04/27/19 04/28/19 18:00 06:00 Breakfast Supper 75% Temperature 97.6 F 98.2 F Selected Entries 04/24/19 04/26/19 04/27/19 14:31 07:18 07:51 Weight 171 lb 170 lb 169 lb Discussed case with PMD. Calorie count in progress. Pt reports that she is eating. Nursing/CUSTOMER SUPPORT PROFESSIONAL to monitor/enter values on calorie count.
[2019-04-28 12:11] LABS: BASO % 0.1 % (0-2.0); EOS % 0.9 % (0-4.5); HEMOGLOBIN 10.5 GM/dL (10.7-15.3); LYMPH % 24.4 % (8-40); MCH 32.2 pg (25.7-33.7); MCHC 32.7 g/dl (32.0-36.0); MEAN CELL VOLUME 98.6 fl (80-96); MEAN PLT VOLUME 10.3 fl (7.5-11.1); MONO % 10.6 % (3.8-10.2); PLATELET COUNT 165 K/MM3 (134-434); RBC 3.25 M/mm3 (3.60-5.2); RDW 15.6 % (11.6-15.6)
[2019-04-28 12:31] LABS: BLOOD UREA NITROGEN 29.1 mg/dL (7-18); CALCIUM 9.4 mg/dL (8.5-10.1); CREATININE 1.3 mg/dL (0.55-1.3); POTASSIUM 4.4 mmol/L (3.5-5.1)
--- NOTE | 2019-04-28 13:54 | CONSULT ---
Consult Consult Specialty:: PM&R Dr Malcolm for Dr Masterson - History of Present Illness Chief Complaint: B shoulder pain History of Present Illness: This is an 83 year old woman with a medical history of glaucoma, HTN, HLD, GERD , DVT, DM, who presented to the ED 04/23/2019 with 19lbs weight gain, worsening BLE edema/ swelling, and FTT. She was admitted with periorbital cellulitis and PVD with CARIE and CHF. Vascular was consulted for BLE edema, who recommended topical care, elevation and teri wrap. ST was consulted as well. She was seen by PT, and on 04/27/2019 she was Contact Guard in Transfers, and ambulated 100 feet Contact Guard with Rolling Walker. Physiatry is being consulted for further recommendations. - Past Medical History Cardio/Vascular: Yes: CHF, HTN Renal/: Yes: Renal Inusuff Infectious Disease: Yes: Other (legs wds) Musculoskeletal: Yes: Chronic low back pain Endocrine: Yes: Diabetes Mellitus Dermatology: Yes: Other (stasis wds legs) - Alcohol/Substance Use Hx Alcohol Use: No History of Substance Use: reports: None - Smoking History Smoking history: Never smoked Have you smoked in the past 12 months: No - Social History Usual Living Arrangement: Other (lives with family in house with 13 steps to enter) History of Recent Travel: No Home Medications - Allergies Allergies/Adverse Reactions: Allergies Allergy/AdvReac Type Severity Reaction Status Date / Time mushroom Allergy Verified 04/27/19 17:41 Review of Systems Findings/Remarks: Denies fevers, chills, changes in vision/ hearing/ mood, CP, SOB, abdominal pain , nausea, vomiting, constipation, diarrhea, dysuria, numbness/ paresthesias. She notes B shoulder pain due to OA. Physical Exam Vital Signs: Vital Signs Temperature 98.2 F 04/28/19 06:00 Pulse Rate 75 04/28/19 06:00 Respiratory Rate 04/28/19 06:00 Blood Pressure 142/59 L 04/28/19 06:00 O2 Sat by Pulse Oximetry (%) 99 04/27/19 21:00 Musculoskeletal: Yes: Other (General: calm elderly AAF sitting in chair NAD, AAO x3 N/M: B shoulder flexion to 80 degrees, 5-/5 BUE/ BLE except for 4+/5 B delt and 3/5 L DF; Pinprick Intact BUE/ BLE Extremities: 1+ BLE pitting edema with stockings in place, no B calf tenderness) Labs: CBC, BMP 04/28/19 11:20 04/28/19 11:20 Assessment/Plan Impression: 1) Deficits mobility/ ADLs 2) Deconditioning 3) Gait abnormality 4) CHF with hx HTN, HLD 5) BLE edema with hx PVD 6) CARIE 7) Periorbital cellulitis 8) hx glaucoma 9) hx GERD 10) hx DVT 11) hx DM 12) FTT 13) Obesity 14) Up to date flu shot/ pneumovax 15) Anemia 16) L foot drop, new in past few days per pt Recommendations: 1) PT for stretching strengthening ROM and functional mobility 2) Falls, safety precautions 3) Cardiac, diabetic precautions 4) Heat B shoulders prn 5) DVT px: on Eliquis 6) Skin protection: float heels, frequent turning 7) Denies constipation on current bowel regimen 8) Monitor CBC given anemia 9) Monitor BMP given renal function 10) Nutrition consult for obesity 11) L foot drop: recommend f/u as outpt 3 weeks after initial drop- pt reports this was a few days ago so recommend EMG as outpt some time after 05/18/2019 if persistent (can make appointment with Dr Masterson [phone] option 1) 12) Continue plan per primary team 13) Discharge planning: she will likely be able to return home with home services once medically stable Thank you for this referral.
[2019-04-28] MEDS: ATORVASTATIN CA 80 MG TABLET (FP) PO SCH (21:44)
[2019-04-28] MEDS: MONTELUKAST NA 10 MG TABLET PO SCH (21:45)
--- NOTE | 2019-04-28 21:54 | PN ---
Progress Note (short form) - Note Progress Note: Pt seen for toenails +onychomycosis, pain x10, +xerosis onychomycosis pain xerosis Debride nails x 10. Ammonium lactate bid to feet and legs.
[2019-04-28] MEDS ORDERED: AMMONIUM LACTATE 12% LOTION 225 GM BOTTLE TP PRN (21:56)
[2019-04-29] MEDS: INSULIN SLIDING SCALE (NOVOLOG) 1 VIAL SQ SCH (06:40)
[2019-04-29] MEDS: PIOGLITAZONE HCL 30 MG TABLET PO SCH (06:40)
--- NOTE | 2019-04-29 08:11 | CON.GI ---
Consult Consult Specialty:: GI Referred by:: Dr Graham Subramanian Reason for Consultation:: Poor PO intake - History of Present Illness History of Present Illness: Patient is an 83 y/o female with past medical history of HTN, HLD, Glaucoma, GERD, DVT on ELiquis. Consult was placed for poor po intake and poor calorie count. Calorie count completed on 04/28/19 and is incomplete with meals not recorded at times. Patient states having poor appetite but has never been a "big eater". Denies dysphagia, nausea, vomiting, abdominal pain, diarrhea, constipation, rectal bleeding, melena. She was evaluated by EXPORT SALES MANAGER and noted with mildly labored mastication with loose lower dentures. - History Source History Provided By: Patient Limitations to Obtaining History: No Limitations - Past Medical History Cardio/Vascular: Yes: CHF, HTN Renal/: Yes: Renal Inusuff Infectious Disease: Yes: Other (legs wds) Musculoskeletal: Yes: Chronic low back pain Endocrine: Yes: Diabetes Mellitus Dermatology: Yes: Other (stasis wds legs) - Alcohol/Substance Use Hx Alcohol Use: No History of Substance Use: reports: None - Smoking History Smoking history: Never smoked Have you smoked in the past 12 months: No - Social History Usual Living Arrangement: Other (lives with family in house with 13 steps to enter) History of Recent Travel: No Home Medications - Allergies Allergies/Adverse Reactions: Allergies Allergy/AdvReac Type Severity Reaction Status Date / Time mushroom Allergy Verified 04/27/19 17:41 Review of Systems - Review of Systems Constitutional: reports: Loss of Appetite Eyes: reports: No Symptoms HENT: reports: No Symptoms Neck: reports: No Symptoms Cardiovascular: reports: No Symptoms Respiratory: reports: No Symptoms Gastrointestinal: reports: No Symptoms Genitourinary: reports: No Symptoms Breasts: reports: No Symptoms Reported Musculoskeletal: reports: No Symptoms Integumentary: reports: No Symptoms Neurological: reports: No Symptoms Endocrine: reports: No Symptoms Hematology/Lymphatic: reports: No Symptoms Psychiatric: reports: No Symptoms Physical Exam-GI Vital Signs: Vital Signs Temperature 97.5 F L 04/29/19 06:00 Pulse Rate 64 04/29/19 06:00 Respiratory Rate 04/29/19 06:00 Blood Pressure 128/60 04/29/19 06:00 O2 Sat by Pulse Oximetry (%) 100 01/21/20 21:00 Constitutional: Yes: No Distress, Calm Eyes: Yes: Conjunctiva Clear HENT: Yes: Atraumatic Cardiovascular: Yes: Regular Rate and Rhythm Respiratory: Yes: Regular, CTA Bilaterally Gastrointestinal Inspection: Yes: WNL. No: Ascites, Distention, Hernia, Scars, Other ...Auscultate: Yes: Normoactive Bowel Sounds. No: Hyperactive Bowel Sounds, Hypoactive Bowel Sounds, No Bowel Sounds, Other ...Palpate: Yes: Soft. No: Firm/Rigid, Guarding, Hepatomegaly, Mass, Pulsatile Mass, Splenomegaly, Tenderness, Tenderness, Epigastium, Tenderness, Rebound, Other ...Percussion: Yes: Tympanitic. No: Dullness, Fluid Wave, Other Neurological: Yes: Alert, Oriented Psychiatric: Yes: Alert, Oriented Labs: CBC, BMP 04/28/19 11:20 04/28/19 11:20 Active Medications Generic Name Dose Route Start Last Admin Trade Name Freq PRN Reason Stop Dose Admin Acetaminophen 650 mg 04/27/19 16:04 Tylenol - PO Q4H PRN PAIN 3- 10 Amlodipine Besylate 10 mg 04/24/19 10:00 04/28/19 09:46 Norvasc - PO 10 mg DAILY [facility] Administration Apixaban 5 mg 04/23/19 22:00 04/28/19 21:43 Eliquis - PO 5 mg BID [facility] Administration Aspirin 81 mg 04/24/19 10:00 04/28/19 09:47 Ecotrin - PO 81 mg DAILY [facility] Administration Atorvastatin Calcium 80 mg 04/23/19 22:00 04/28/19 21:44 Lipitor - PO 80 mg HS [facility] Administration Bacitracin 1 applic 04/24/19 11:30 04/28/19 09:46 Bacitracin - TP 1 applic DAILY [facility] Administration Carvedilol 6.25 mg 04/23/19 22:00 04/28/19 21:43 Coreg - PO 6.25 mg BID [facility] Administration Ferrous Sulfate 325 mg 04/27/19 12:00 04/28/19 17:33 Feosol - PO 325 mg TIDCM [facility] Administration Gabapentin 200 mg 04/23/19 22:00 04/28/19 21:44 Neurontin - PO 200 mg BID [facility] Administration Insulin Aspart 1 vial 04/25/19 23:55 04/29/19 06:40 Novolog Vial Sliding Scale - SQ Not Given BIDAC [facility] Protocol Lactic Acid 1 applic 04/28/19 21:56 Lac-Hydrin 12 TP DAILY PRN xerosis Montelukast Sodium 10 mg 04/24/19 22:00 04/28/19 21:45 Singulair - PO 10 mg HS [facility] Administration Pioglitazone HCl 30 mg 04/24/19 07:00 04/29/19 06:40 Actos - PO 30 mg DAILY@0700 [facility] Administration Problem List - Problems (1) Poor appetite Assessment/Plan: Poor PO intake >Recommendation: Psychiatry consult to R/O depression >Folic Acid, Vitamin B Complex, Megastrol Code(s): R63.0 - ANOREXIA
[2019-04-29] MEDS: FERROUS SO4 325 MG TABLET (FP) PO SCH ×3 (09:34→17:51)
[2019-04-29] MEDS: GABAPENTIN 100 MG CAPSULE PO SCH (09:34)
[2019-04-29] MEDS: BACITRACIN 15 GM TUBE TOPICAL OINTMENT TP SCH (09:35)
[2019-04-29] MEDS: amLODIPine BESYLATE 10 MG TABLET (FP) PO SCH (09:35)
[2019-04-29] MEDS: CARVEDILOL 6.25 MG TABLET (FP) PO SCH (09:35)
[2019-04-29] MEDS: ASPIRIN COATED 81 MG TABLET.EC PO SCH (09:35)
[2019-04-29] MEDS: APIXABAN 5 MG TABLET PO SCH (09:35)
[2019-04-29] MEDS ORDERED: FOLIC ACID 1 MG TABLET (FP) PO SCH (10:00)
[2019-04-29] MEDS ORDERED: MEGESTROL ACETATE 40 MG TABLET PO SCH (10:00)
[2019-04-29] MEDS ORDERED: VITAMIN B COMPLEX W/C COMBO TABLET (FP) PO SCH (10:00)
--- NOTE | 2019-04-29 11:42 | CON.PSY ---
Psychiatry Consult Chief Complaint: 83 [place] old female with a history of chronic medical conditions seen for Psych evaluation for DEpression. Patient denies any dep[ ression or history ofr previous treatment for any Mental illness. - Previous Psychiatric Treatment Outpatient: None Inpatient: None - Previous Substance Abuse Treatment Outpatient: None Inpatient: None - Current Medications Current Medications: Active Medications Acetaminophen (Tylenol -) 650 mg PO Q4H PRN PRN Reason: PAIN 3- 10 Amlodipine Besylate (Norvasc -) 10 mg PO DAILY [facility] Last Admin: 04/29/19 09:35 Dose: 10 mg Apixaban (Eliquis -) 5 mg PO BID [facility] Last Admin: 04/29/19 09:35 Dose: 5 mg Aspirin (Ecotrin -) 81 mg PO DAILY [facility] Last Admin: 04/29/19 09:35 Dose: 81 mg Atorvastatin Calcium (Lipitor -) 80 mg PO HS [facility] Last Admin: 04/28/19 21:44 Dose: 80 mg Bacitracin (Bacitracin -) 1 applic TP DAILY [facility] Last Admin: 04/29/19 09:35 Dose: 1 applic Carvedilol (Coreg -) 6.25 mg PO BID [facility] Last Admin: 04/29/19 09:35 Dose: 6.25 mg Ferrous Sulfate (Feosol -) 325 mg PO TIDCM [facility] Last Admin: 04/29/19 09:34 Dose: 325 mg Folic Acid (Folic Acid -) 1 mg PO DAILY [facility] Last Admin: 04/29/19 09:34 Dose: 1 mg Gabapentin (Neurontin -) 200 mg PO BID [facility] Last Admin: 04/29/19 09:34 Dose: 200 mg Insulin Aspart ([facility]olog Vial Sliding Scale -) [facility]; Protocol Last Admin: 04/29/19 06:40 Dose: Not Given Lactic Acid (Lac-Hydrin 12) 1 applic TP DAILY PRN PRN Reason: xerosis Megestrol Acetate (Megace -) 40 mg PO DAILY [facility] Montelukast Sodium (Singulair -) 10 mg PO [facility] Last Admin: 04/28/19 21:45 Dose: 10 mg Multivitamins (Total B With C -) 1 each PO DAILY [facility] Last Admin: 04/29/19 09:36 Dose: Not Given Pioglitazone HCl (Actos -) 30 mg PO DAILY@0700 [facility] Last Admin: 04/29/19 06:40 Dose: 30 mg - Allergies Allergies: Allergies Allergy/AdvReac Type Severity Reaction Status Date / Time mushroom Allergy Verified 04/27/19 17:41 - Current Living Status Usual Living Arrangement: With Significant Other - Current Mental Status Evaluation Appearance: Well Groomed Attitude: Cooperative - Affect Affect: Full Range Appropriateness: Appropriate to Content - Mood Mood: Euthymic - Speech/Language Expressive: Coherent - Psychomotor Activity Psychomotor Activity: Normal - Thought Process Thought Process: Intact - Thought Content Hallucinations: Absent Delusions: Absent - Self Perception Self Perception: No Impairment - Cognition Attention: Alert Orientation: Time Memory, Immediate Recall: Intact Memory, Short Term: 3/3 Memory, Remote with Promptin/3 - Concentration Serial Sevens Intact: No Simple Calculations Intact: Yes - Abstraction Proverb Interpretation: Intact Judgement: Intact - Insight Insight: Intact - Impulse Control Impulse Control: Good Control - Suicidal Ideation Suicidal Ideation: No - Homicidal Ideation Homicidal Ideation: No Assessment/Plan 1) NO evidence of Clinical Depression at this time.
[2019-04-29] MEDS ORDERED: PT OWN MED DRAWER 7, Y5N ONE (11:57)
[2019-04-29 12:04] VITALS: BMI 32.5
--- NOTE | 2019-04-29 13:44 | DS ---
Physical Examination Vital Signs: Vital Signs Temperature 98.1 F 04/29/19 10:00 Pulse Rate 98 H 04/29/19 10:00 Respiratory Rate 04/29/19 10:00 Blood Pressure 151/70 04/29/19 10:00 O2 Sat by Pulse Oximetry (%) 99 04/29/19 13:05 Constitutional: Yes: Well Nourished Eyes: Yes: WNL HENT: Yes: WNL, Tonsillar Exudate Cardiovascular: Yes: WNL Respiratory: Yes: WNL Gastrointestinal: Yes: WNL ...Rectal Exam: Yes: Deferred, Other Breast(s): Yes: WNL Musculoskeletal: Yes: WNL Extremities: Yes: Other (maricruz weakness) Edema: Yes Edema: LLE: 1+, RLE: 1+ Peripheral Pulses WNL: Yes Peripheral Pulses: Left Radial: 1+, Right Radial: 1+, Left Doralis Pedis: 1+, Right Dorsalis Pedis: 1+, Left Femoral: 1+ Integumentary: Yes: WNL Wound/Incision: Yes: Clean/Dry Neurological: Yes: WNL ...Motor Strength: WNL Psychiatric: Yes: WNL Labs: CBC, BMP 04/28/19 11:20 04/28/19 11:20 Discharge Summary Problems reviewed: Yes Reason For Visit: FAILURE TO THRIVE Current Active Problems CARIE (acute kidney injury) (Acute) Acquired lymphedema of lower extremity (Acute) CHF (congestive heart failure) (Acute) Diabetes 1.5, managed as type 2 (Acute) Failure to thrive (Acute) Glaucoma (Acute) HTN (hypertension) (Acute) HTN (hypertension) (Acute) PVD (peripheral vascular disease) (Acute) Periorbital cellulitis (Acute) Poor appetite (Acute) Condition: Stable - Instructions Diet, Activity, Other Instructions: appt w me saturday 200pm no mri l/s needed lt foot slightly weak no back oain futile to do sx anyway cont all tx as is home encourafe po feeds home attendind at house Referrals: Graham Subramanian MD [Primary Care Provider] - Disposition: HOME - Home Medications Comprehensive Discharge Medication List: Ambulatory Orders Amlodipine Besylate [Norvasc -] 1 tab PO DAILY 01/02/18 Apixaban [Eliquis] 1 tab PO BID 01/02/18 Atorvastatin Ca [Lipitor] 1 tab PO DAILY 01/02/18 Brimonidine Tartrate [Alphagan P 0.1% -] 1 drop OU DAILY 01/02/18 Carvedilol [Coreg] 1 tab PO BID 01/02/18 Famotidine [Pepcid] 1 tab PO DAILY 01/02/18 Gabapentin [Neurontin] 1 cap PO TID 01/02/18 Insulin (Levemir) [Levemir Vial] 55 units SQ HS 01/02/18 Latanoprost 0.005% Eye Drops [Xalatan 0.005% Eye Drops -] 1 drop OU DAILY Oxycodone HCl/Acetaminophen [Percocet 5-325 mg Tablet] 1 tab PO TID PRN
[2019-04-29 19:20] VITALS: BP 141/68; PULSE 75; TEMP 98.3
== END 2019-04-29 19:37 | disposition home or self-care (01) | DRG 300 ==
LOC: JER 10:59 → JERBED 14:55 → J5S 18:46 → OBSVTOIN 04-24 19:30
PROVIDERS: ADMIT Family Medicine; ATTEND Family Medicine
PROC: 0HBRXZZ Excision of Toe Nail, External Approach (ICD-10-PCS; principal; 2019-04-28)
DX: I73.9 Peripheral vascular disease, unspecified (principal); L03.213 Periorbital cellulitis; I83.208 Varicose veins of unspecified lower extremity with both ulcer of other part of lower extremity and inflammation; I89.0 Lymphedema, not elsewhere classified; I50.9 Heart failure, unspecified; R62.7 Adult failure to thrive; M21.372 Foot drop, left foot; R63.0 Anorexia; I11.0 Hypertensive heart disease with heart failure; E11.9 Type 2 diabetes mellitus without complications; H40.9 Unspecified glaucoma; K21.9 Gastro-esophageal reflux disease without esophagitis; B35.1 Tinea unguium; E66.9 Obesity, unspecified; Z68.32 Body mass index [BMI] 32.0-32.9, adult; D64.9 Anemia, unspecified; E78.5 Hyperlipidemia, unspecified
CPT/HCPCS: 36415; 71045-TC-FY; 80048; 80053; 81003; 82962; 83880; 84443; 85025; 93005; 93010; 97116-GP; 97162-GP; 99283-25; G0378